=== PATIENT | male | born 1980 | race Caucasian/White ===

== ENCOUNTER 2017-01-28 17:13 | Emergency (ER) | payer SELFPAY ==
[~2017-01-28] VITALS: Ht 177.8 cm; Wt 63.5 kg
[2017-01-28 17:29] VITALS: BP 120/73
== END 2017-01-28 18:55 | disposition home or self-care (01) ==
LOC: ED 17:13
DX: L03.012 Cellulitis of left finger (principal)
CPT/HCPCS: J0690

== ENCOUNTER 2017-05-08 23:18 | Emergency (ER) | payer MEDICAID ==
[~2017-05-08] VITALS: Ht 180.3 cm; Wt 64.4 kg
[2017-05-08 23:31] VITALS: Ht 180.3 cm; Wt 64.4 kg
[2017-05-09 00:27] VITALS: BP 117/80
== END 2017-05-09 00:28 | disposition home or self-care (01) ==
LOC: ED 23:18
DX: L08.89 Other specified local infections of the skin and subcutaneous tissue (principal)